=== PATIENT | male | born 1950 | race Caucasian/White ===

== ENCOUNTER → 2024-03-19 | Outpatient (REF) | payer MEDICARE ==
[~2024-03-19] MED LIST: DONEPEZIL HCL10 MG PO; DONEPEZIL PO; FLOMAX0.4 MG PO; GABAPENTIN300 MG PO; GEMFIBROZIL600 MG PO; KEPPRA500 MG PO; LEVOTHYROXINE50 MCG PO; LOSARTAN-HCTZ1 EAC1 PO; MEMANTINE PO
== END ==
LOC: US 12:17
PROVIDERS: ATTEND Internal Medicine Nephrology
DX: N18.4 Chronic kidney disease, stage 4 (severe) (principal)
CPT/HCPCS: 76770

== ENCOUNTER 2024-05-09 03:12 | Inpatient (IN) | payer MEDICARE ==
[2024-05-09] VITALS (57 sets, daily range): BP systolic 137–222; BP diastolic 61–207; PULSE 63–99; RESP 10–29; TEMP 97.4–98.6; O2SAT 88–100
[~2024-05-09] VITALS: Ht 175.3 cm; Wt 81.4 kg
[2024-05-09] MEDS: SODIUM CHLORIDE 0.9% 1000ML 1,000 ML IV STA (03:49)
[2024-05-09 03:52] LABS: BASOPHILS % 0.5 % (0.0-1.0); EOSINOPHILS # (AUTO) 0.2 (0.0-0.4); EOSINOPHILS % 2.2 % (0.0-6.0); HEMATOCRIT 39.2 % (38.2-49.6); HEMOGLOBIN 12.7 g/dL (14.0-18.0); LYMPHOCYTES # (AUTO) 1.8 (1.0-3.2); LYMPHOCYTES % 23.9 % (18.0-39.1); MEAN CORPUSCULAR HEMOGLOBIN 30.9 pg (28-32); MEAN CORPUSCULAR HGB CONC 32.4 g/dL (31-35); MEAN CORPUSCULAR VOLUME 95.4 fL (81-99); MONOCYTES # (AUTO) 0.6 (0.2-0.8); MONOCYTES % 7.5 % (4.4-11.3); NEUTROPHILS % 65.4 % (38.7-80.0); PLATELET COUNT 220 x10e3/uL (140-360); RED BLOOD COUNT 4.11 x10e6/uL (4.3-5.7); RED CELL DISTRIBUTION WIDTH 14.6 % (11.7-14.4); WHITE BLOOD COUNT 7.71 x10e3/uL (4.8-10.8)
[2024-05-09] MEDS: ACETAMINOPHEN 325 MG TAB PO STA (03:59)
[2024-05-09] MEDS ORDERED: Morphine 4mg INJECTION 4 MG/ML INJ IV PRN (04:00)
[2024-05-09] MEDS ORDERED: SODIUM CHLORIDE 0.9% 1000ML 1,000 ML IV SCH (04:00)
[2024-05-09] MEDS ORDERED: ONDANSETRON HCL INJ 2MG/ML 2ML 2 MG/ML VIAL IV PRN (04:00)
[2024-05-09 04:19] LABS: ALBUMIN 3.6 g/dL (3.5-5.0); ALBUMIN/GLOBULIN RATIO 0.9 (0.8-2.0); ANION GAP 21.1 mmol/L (8-16); BILIRUBIN,TOTAL 0.4 mg/dL (0.2-1.2); CALCIUM 10.3 mg/dL (8.4-10.2); CREATININE, SERUM 2.95 mg/dL (0.72-1.25); POTASSIUM 4.1 mmol/L (3.5-5.1); TOTAL PROTEIN 7.6 g/dL (6.5-8.1)
[2024-05-09 04:24] LABS: TROPONIN I 0.019 ng/mL (0-0.300)
[2024-05-09 04:30] LABS: B-TYPE NATRIURETIC PEPTIDE2 394.3 pg/mL (0-100)
[2024-05-09 04:44] LABS: ABG HCO3 19 mmol/L (22-26); ABG PCO2 44 mmHg (35-45); ABG PH 7.25 (7.35-7.45); ABG PO2 420 mmHg (80-105); ABG TCO2 20
[2024-05-09 04:51] LABS: INFLUENZAE A&B ANTIGEN (RAPID) NEGATIVE (NEGATIVE); RESPIRATORY SYNC. VIRUS NEGATIVE (NEGATIVE)
[2024-05-09] MEDS: MUPIROCIN 2% OINT 22 GM TUBE TOP SCH (08:04)
[2024-05-09] MEDS: LEVETIRACETAM 500 MG TAB PO SCH (08:04)
[2024-05-09] MEDS: METHYLPREDNISOLONE SOD SUCC 40 MG/ML VIAL 1ML IV ONE (08:04)
[2024-05-09] MEDS: LEVOTHYROXINE SODIUM 50 MCG TAB PO SCH (08:07)
[2024-05-09] MEDS: GEMFIBROZIL 600 MG TAB PO SCH (08:07)
[2024-05-09] MEDS: NIFEDIPINE CR 30 MG TAB PO SCH (08:53)
[2024-05-09] MEDS: ALBUTEROL/IPRATROPIUM 3 ML NEB NEB PRN (09:12)
[2024-05-09] MEDS: HYDRALAZINE HCL 20 MG/ML VIAL IV PRN (10:13)
[2024-05-09] MEDS ORDERED: FUROSEMIDE INJ 10 MG/ML 4 ML VIAL IV ONE (10:30)
[2024-05-09 11:00] LABS: ABG HCO3 17 mmol/L (22-26); ABG PCO2 38 mmHg (35-45); ABG PH 7.26 (7.35-7.45); ABG PO2 446 mmHg (80-105); ABG TCO2 18
[2024-05-09 12:52] LABS: ANION GAP 19.7 mmol/L (8-16); CALCIUM 8.9 mg/dL (8.4-10.2); CREATININE, SERUM 2.77 mg/dL (0.72-1.25); POTASSIUM 4.7 mmol/L (3.5-5.1)
[2024-05-09 12:56] LABS: BILIRUBIN,URINE NEGATIVE (NEGATIVE); CLARITY,URINE CLEAR (CLEAR); COLOR,URINE YELLOW (YELLOW); GLUCOSE, URINE NEGATIVE (NEGATIVE); KETONES,URINE NEGATIVE (NEGATIVE); LEUKOCYTE ESTERASE ,URINE NEGATIVE (NEGATIVE); NITRITE,URINE NEGATIVE (NEGATIVE); PH,URINE 5.5 (5 - 7); PROTEIN,URINE DIPSTICK >=300 (NEGATIVE); URINE UROBILINOGEN 0.2 mg/dL (0.2 - 1)
[2024-05-09] MEDS ORDERED: DIOVAN320 MG PO (13:05)
[2024-05-09] MEDS ORDERED: MEMANTINE HCL10 MG PO (13:10)
[2024-05-09] MEDS ORDERED: ALTOPREV40 MG PO (13:10)
[2024-05-09] MEDS ORDERED: AMLODIPINE BESYL5 MG PO (13:10)
[2024-05-09] MEDS ORDERED: METOPROLOL SUCC50 MG PO (13:10)
[2024-05-09] MEDS ORDERED: LAMOTRIGINE100 MG PO (13:10)
[2024-05-09 13:14] LABS: BACTERIA,URINE MODERATE /HPF; EPITHELIAL CELLS,URINE FEW /LPF; RBC,URINE 0-5 /HPF (0-5); RENAL EPITHELIAL CELLS,URINE FEW
[2024-05-09 13:18] LABS: TROPONIN I 0.01 ng/mL (0-0.300)
[2024-05-09] MEDS: ALBUTEROL/IPRATROPIUM 3 ML NEB NEB SCH (13:40)
[2024-05-09] MEDS: NIFEDIPINE CR 30 MG TAB PO ONE (14:14)
[2024-05-09] MEDS: METHYLPREDNISOLONE SOD SUCC 40 MG/ML VIAL 1ML IV SCH (14:14)
[2024-05-09 15:04] LABS: CREATININE,URINE RANDOM 120.77 mg/dL (63-166)
[2024-05-09] MEDS: BUMETANIDE INJ 0.25MG/ML 4ML VIAL IV ONE (15:05)
[2024-05-09] MEDS: DEXTROSE 5% 1,000 ML IV SCH (15:05)
[2024-05-09] MEDS: SODIUM BICARBONATE 650 MG TAB PO SCH (16:34)
[2024-05-09] MEDS: VALSARTAN 160 MG TAB PO ONE (18:25)
[2024-05-09] MEDS: BUDESONIDE 0.25 MG/2 ML NEB NEB SCH (19:43)
[2024-05-09] MEDS: TAMSULOSIN HCL 0.4 MG CAP PO SCH (20:44)
[2024-05-09] MEDS: NICARDIPINE 20MG/200ML PREMIX 200 ML IV SCH (20:45)
[2024-05-09] MEDS ORDERED: TAMSULOSIN HCL 0.4 MG CAP PO SCH (21:00)
[2024-05-09] MEDS: Morphine 4mg INJECTION 4 MG/ML INJ IV ONE (23:25)
[2024-05-10] VITALS (40 sets, daily range): BP systolic 115–188; BP diastolic 53–83; PULSE 52–98; RESP 10–26; TEMP 97.5–98.5; O2SAT 90–100
[2024-05-10 00:27] LABS: TROPONIN I < 0.05 ng/mL (0.0-0.40)
[2024-05-10 00:39] LABS: CREATINE KINASE 1560 IU/L (30-200)
[2024-05-10 06:14] LABS: HEMATOCRIT 34.6 % (38.2-49.6); HEMOGLOBIN 11.2 g/dL (14.0-18.0); LYMPHOCYTES # (AUTO) 0.3 (1.0-3.2); LYMPHOCYTES % 6.3 % (18.0-39.1); MEAN CORPUSCULAR HEMOGLOBIN 31.2 pg (28-32); MEAN CORPUSCULAR HGB CONC 32.4 g/dL (31-35); MEAN CORPUSCULAR VOLUME 96.4 fL (81-99); MONOCYTES # (AUTO) 0.2 (0.2-0.8); MONOCYTES % 4.4 % (4.4-11.3); NEUTROPHILS # (AUTO) 4.8 (2.1-6.9); NEUTROPHILS % 87.8 % (38.7-80.0); PLATELET COUNT 193 x10e3/uL (140-360); RED BLOOD COUNT 3.59 x10e6/uL (4.3-5.7); RED CELL DISTRIBUTION WIDTH 15.2 % (11.7-14.4); WHITE BLOOD COUNT 5.42 x10e3/uL (4.8-10.8)
[2024-05-10 06:46] LABS: ALBUMIN 2.9 g/dL (3.5-5.0); ANION GAP 15.2 mmol/L (8-16); BILIRUBIN,TOTAL 0.3 mg/dL (0.2-1.2); CALCIUM 8.6 mg/dL (8.4-10.2); CREATININE, SERUM 2.61 mg/dL (0.72-1.25); POTASSIUM 4.2 mmol/L (3.5-5.1); TOTAL PROTEIN 5.9 g/dL (6.5-8.1)
[2024-05-10 06:57] LABS: TROPONIN I < 0.05 ng/mL (0.0-0.40)
[2024-05-10 07:06] LABS: CREATINE KINASE 1051 IU/L (30-200)
[2024-05-10] MEDS: NIFEDIPINE CR 30 MG TAB PO SCH (08:40)
[2024-05-10] MEDS: VALSARTAN 160 MG TAB PO SCH (08:41)
[2024-05-10] MEDS: SODIUM BICARBONATE 650 MG TAB PO SCH (11:47)
[2024-05-10] MEDS: SODIUM BICARBONATE 8.4% VIAL 150 ML in DEXTROSE 5% 1,000 ML IV SCH (11:47)
[2024-05-10] MEDS: HYDRALAZINE HCL 25 MG TAB PO SCH (11:49)
[2024-05-11] VITALS (46 sets, daily range): BP systolic 153–191; BP diastolic 59–104; PULSE 66–118; RESP 7–20; TEMP 98.2–98.6; O2SAT 90–99
[2024-05-11 07:53] LABS: BASOPHILS % 0.1 % (0.0-1.0); HEMATOCRIT 39.4 % (38.2-49.6); HEMOGLOBIN 12.7 g/dL (14.0-18.0); LYMPHOCYTES # (AUTO) 0.3 (1.0-3.2); LYMPHOCYTES % 4.4 % (18.0-39.1); MEAN CORPUSCULAR HEMOGLOBIN 30.4 pg (28-32); MEAN CORPUSCULAR HGB CONC 32.2 g/dL (31-35); MEAN CORPUSCULAR VOLUME 94.3 fL (81-99); MONOCYTES # (AUTO) 0.2 (0.2-0.8); MONOCYTES % 3.3 % (4.4-11.3); NEUTROPHILS # (AUTO) 6.5 (2.1-6.9); NEUTROPHILS % 90.8 % (38.7-80.0); PLATELET COUNT 213 x10e3/uL (140-360); RED BLOOD COUNT 4.18 x10e6/uL (4.3-5.7); RED CELL DISTRIBUTION WIDTH 15.4 % (11.7-14.4)
[2024-05-11] MEDS: FUROSEMIDE INJ 10 MG/ML 2 ML VIAL IV ONE (08:13)
[2024-05-11 08:26] LABS: ALBUMIN 2.8 g/dL (3.5-5.0); ALBUMIN/GLOBULIN RATIO 0.8 (0.8-2.0); BILIRUBIN,TOTAL 0.4 mg/dL (0.2-1.2); CREATININE, SERUM 2.48 mg/dL (0.72-1.25); TOTAL PROTEIN 6.1 g/dL (6.5-8.1)
[2024-05-11] MEDS: HYDRALAZINE HCL 100 MG TABLET PO SCH (13:37)
[2024-05-11] MEDS: METHYLPREDNISOLONE SOD SUCC 40 MG/ML VIAL 1ML IV SCH (14:00)
[2024-05-11] MEDS: ENOXAPARIN 30 MG/0.3 ML SYR SC SCH (16:34)
[2024-05-12] VITALS (28 sets, daily range): BP systolic 101–184; BP diastolic 51–83; PULSE 68–114; RESP 8–20; TEMP 98–98.5; O2SAT 85–99
[2024-05-12 06:59] LABS: BASOPHILS % 0.1 % (0.0-1.0); EOSINOPHILS % 0.1 % (0.0-6.0); HEMATOCRIT 38.4 % (38.2-49.6); HEMOGLOBIN 12.4 g/dL (14.0-18.0); LYMPHOCYTES # (AUTO) 0.9 (1.0-3.2); MEAN CORPUSCULAR HEMOGLOBIN 30.7 pg (28-32); MEAN CORPUSCULAR HGB CONC 32.3 g/dL (31-35); MONOCYTES # (AUTO) 0.6 (0.2-0.8); NEUTROPHILS # (AUTO) 5.7 (2.1-6.9); NEUTROPHILS % 78.8 % (38.7-80.0); PLATELET COUNT 212 x10e3/uL (140-360); RED BLOOD COUNT 4.04 x10e6/uL (4.3-5.7); RED CELL DISTRIBUTION WIDTH 15.7 % (11.7-14.4); WHITE BLOOD COUNT 7.28 x10e3/uL (4.8-10.8)
[2024-05-12 07:26] LABS: ALBUMIN 2.7 g/dL (3.5-5.0); ALBUMIN/GLOBULIN RATIO 0.9 (0.8-2.0); ANION GAP 18.6 mmol/L (8-16); BILIRUBIN,TOTAL 0.4 mg/dL (0.2-1.2); CALCIUM 8.8 mg/dL (8.4-10.2); CREATININE, SERUM 2.55 mg/dL (0.72-1.25); POTASSIUM 3.6 mmol/L (3.5-5.1); TOTAL PROTEIN 5.6 g/dL (6.5-8.1)
[2024-05-12] MEDS: OXYMETAZOLINE HCL 0.05% NAS 1 SPRAY BTL SCH (14:51)
[2024-05-13] VITALS (31 sets, daily range): BP systolic 109–173; BP diastolic 55–74; PULSE 67–112; RESP 8–26; TEMP 97.9–98.7; O2SAT 85–99
[2024-05-14] VITALS (21 sets, daily range): BP systolic 146–196; BP diastolic 55–169; PULSE 63–96; RESP 7–21; TEMP 97.6–98.5; O2SAT 89–100
[2024-05-14 06:58] LABS: HEMATOCRIT 34.5 % (38.2-49.6); HEMOGLOBIN 11.1 g/dL (14.0-18.0); MEAN CORPUSCULAR HGB CONC 32.2 g/dL (31-35); MEAN CORPUSCULAR VOLUME 96.4 fL (81-99); PLATELET COUNT 162 x10e3/uL (140-360); RED BLOOD COUNT 3.58 x10e6/uL (4.3-5.7); RED CELL DISTRIBUTION WIDTH 14.9 % (11.7-14.4); WHITE BLOOD COUNT 4.26 x10e3/uL (4.8-10.8)
[2024-05-14 07:21] LABS: ALBUMIN 2.7 g/dL (3.5-5.0); ALBUMIN/GLOBULIN RATIO 0.9 (0.8-2.0); ANION GAP 15.4 mmol/L (8-16); BILIRUBIN,TOTAL 0.5 mg/dL (0.2-1.2); CALCIUM 8.5 mg/dL (8.4-10.2); CREATININE, SERUM 2.48 mg/dL (0.72-1.25); TOTAL PROTEIN 5.7 g/dL (6.5-8.1)
[2024-05-14 07:22] LABS: POTASSIUM 3.4 mmol/L (3.5-5.1)
[2024-05-14] MEDS: PREDNISONE 20 MG TAB PO SCH (10:21)
[2024-05-14] MEDS: POTASSIUM CHLORIDE 20 MEQ TAB CR PO ONE (10:38)
[2024-05-14] MEDS: SODIUM CHLORIDE 0.9% 250ML 250 ML ONE (23:09)
[2024-05-15] VITALS (13 sets, daily range): BP systolic 151–191; BP diastolic 61–68; PULSE 73–93; RESP 15–23; TEMP 97.6–98.7; O2SAT 95–98
[2024-05-15] MEDS ORDERED: ONDANSETRON HCL 4 MG ORAL DISINTEGRATING TAB PO PRN (08:30)
[2024-05-15] MEDS ORDERED: AZITHROMYCIN 250 MG TAB PO SCH (09:00)
[2024-05-15] MEDS: MEMANTINE 10 MG TAB PO SCH (09:31)
[2024-05-15] MEDS: AZITHROMYCIN 250 MG TAB PO SCH (09:31)
[2024-05-16] MEDS ORDERED: PREDNISONE 10 MG TAB PO SCH (09:00)
[2024-06-03 07:37] LABS: ABG HCO3 17 mmol/L (22-26); ABG PCO2 38 mmHg (35-45); ABG PH 7.26 (7.35-7.45); ABG PO2 446 mmHg (80-105); ABG TCO2 18
[2024-06-03 07:37] LABS: ABG HCO3 19 mmol/L (22-26); ABG PCO2 44 mmHg (35-45); ABG PH 7.25 (7.35-7.45); ABG PO2 420 mmHg (80-105); ABG TCO2 20
== END 2024-05-15 20:29 | disposition home health service (06) | DRG 189 ==
LOC: ER 03:17 → ERHOLD 03:53 → ICU 06:32 → MED/SURG 05-14 21:54
PROVIDERS: ADMIT Family Medicine; ATTEND Family Medicine
PROC: 4A033R1 Measurement of Arterial Saturation, Peripheral, Percutaneous Approach (ICD-10-PCS; principal; 2024-05-09)
PROC: 4A033R1 Measurement of Arterial Saturation, Peripheral, Percutaneous Approach (ICD-10-PCS; 2024-05-09)
PROC: 5A09357 Assistance with Respiratory Ventilation, Less than 24 Consecutive Hours, Continuous Positive Airway Pressure (ICD-10-PCS; 2024-05-09)
PROC: 5A0935A Assistance with Respiratory Ventilation, Less than 24 Consecutive Hours, High Flow/Velocity Cannula (ICD-10-PCS; 2024-05-13)
PROC: 5A0935A Assistance with Respiratory Ventilation, Less than 24 Consecutive Hours, High Flow/Velocity Cannula (ICD-10-PCS; 2024-05-13)
DX: J96.01 Acute respiratory failure with hypoxia (principal); I50.33 Acute on chronic diastolic (congestive) heart failure; J44.1 Chronic obstructive pulmonary disease with (acute) exacerbation; I13.0 Hypertensive heart and chronic kidney disease with heart failure and stage 1 through stage 4 chronic kidney disease, or unspecified chronic kidney disease; N17.9 Acute kidney failure, unspecified; E87.20 Acidosis, unspecified; E87.0 Hyperosmolality and hypernatremia; I16.9 Hypertensive crisis, unspecified; N39.0 Urinary tract infection, site not specified; N18.32 Chronic kidney disease, stage 3b; E87.8 Other disorders of electrolyte and fluid balance, not elsewhere classified; Z99.81 Dependence on supplemental oxygen; G40.909 Epilepsy, unspecified, not intractable, without status epilepticus; Z71.3 Dietary counseling and surveillance; Z68.27 Body mass index [BMI] 27.0-27.9, adult; N40.0 Benign prostatic hyperplasia without lower urinary tract symptoms; F03.90 Unspecified dementia, unspecified severity, without behavioral disturbance, psychotic disturbance, mood disturbance, and anxiety; F10.90 Alcohol use, unspecified, uncomplicated; Y90.0 Blood alcohol level of less than 20 mg/100 ml; Z11.52 Encounter for screening for COVID-19; Z87.891 Personal history of nicotine dependence; E78.5 Hyperlipidemia, unspecified
CPT/HCPCS: 0223U; 36415; 36600; 71045; 76604; 76770; 80048; 80053; 80320; 81001; 82550; 82570; 82805; 83605; 83690; 83880; 84156; 84484; 85007; 85025; 85027; 87040; 87086; 87400; 87420; 93005; 93306; 94660; 94799; 96365; 96366; 99252; 99284; J0360; J1650; J1940; J2270; J2543; J2919; J7030; J7050; J7070; J7512

== ENCOUNTER → 2024-06-04 | Outpatient (REF) | payer MEDICARE ==
[~2024-06-04] MED LIST changes: +ALTOPREV40 MG PO; +AMLODIPINE BESYL5 MG PO; +DIOVAN320 MG PO; +LAMOTRIGINE100 MG PO; +MEMANTINE HCL10 MG PO; +METOPROLOL SUCC50 MG PO
== END ==
LOC: RAD 12:30
PROVIDERS: ATTEND Internal Medicine Pulmonary Disease
DX: R06.02 Shortness of breath (principal)
CPT/HCPCS: 71046

== ENCOUNTER 2024-06-14 07:17 | Inpatient (IN) | payer MEDICARE ==
[~2024-06-14] VITALS: Ht 175.3 cm; Wt 81.2 kg
[2024-06-14] VITALS (10 sets, daily range): BP systolic 204–219; BP diastolic 80–92; PULSE 72–84; RESP 14–22; TEMP 96.6–98.2; O2SAT 94–99
[2024-06-14 07:45] LABS: BASOPHILS % 0.1 % (0.0-1.0); EOSINOPHILS % 0.1 % (0.0-6.0); HEMATOCRIT 35.8 % (38.2-49.6); HEMOGLOBIN 11.5 g/dL (14.0-18.0); LYMPHOCYTES # (AUTO) 0.5 (1.0-3.2); LYMPHOCYTES % 5.5 % (18.0-39.1); MEAN CORPUSCULAR HEMOGLOBIN 30.4 pg (28-32); MEAN CORPUSCULAR HGB CONC 32.1 g/dL (31-35); MEAN CORPUSCULAR VOLUME 94.7 fL (81-99); MONOCYTES # (AUTO) 0.7 (0.2-0.8); MONOCYTES % 7.8 % (4.4-11.3); NEUTROPHILS # (AUTO) 7.3 (2.1-6.9); NEUTROPHILS % 85.9 % (38.7-80.0); PLATELET COUNT 198 x10e3/uL (140-360); RED BLOOD COUNT 3.78 x10e6/uL (4.3-5.7); RED CELL DISTRIBUTION WIDTH 14.7 % (11.7-14.4)
[2024-06-14] MEDS: METOPROLOL TARTRATE 25 MG TAB PO ONE (07:46)
[2024-06-14] MEDS: ASPIRIN 81 MG CHEW TAB PO ONE (07:46)
[2024-06-14] MEDS: SODIUM CHLORIDE 0.9% 1000ML 1,000 ML IV STA (07:47)
[2024-06-14] MEDS: NITROGLYCERIN 2% OINT 1 GM PKT TOP ONE (07:47)
[2024-06-14 08:06] LABS: INR 1.07; PROTHROMBIN TIME 14.5 seconds (11.9-14.5)
[2024-06-14 08:07] LABS: PARTIAL THROMBOPLASTIN TIME 33.2 seconds (23.8-35.5)
[2024-06-14 08:12] LABS: ALBUMIN 3.2 g/dL (3.5-5.0); ALBUMIN/GLOBULIN RATIO 0.9 (0.8-2.0); ANION GAP 18.2 mmol/L (8-16); BILIRUBIN,TOTAL 0.5 mg/dL (0.2-1.2); CALCIUM 9.3 mg/dL (8.4-10.2); CREATININE, SERUM 2.59 mg/dL (0.72-1.25); MAGNESIUM 1.9 MG/DL (1.3-2.1); POTASSIUM 3.2 mmol/L (3.5-5.1); TOTAL PROTEIN 6.6 g/dL (6.5-8.1)
[2024-06-14 08:18] LABS: TROPONIN I 0.071 ng/mL (0-0.300)
[2024-06-14 08:23] LABS: B-TYPE NATRIURETIC PEPTIDE2 392.1 pg/mL (0-100)
[2024-06-14 08:31] LABS: INFLUENZA A AG NEGATIVE (NEGATIVE)
[2024-06-14 08:32] LABS: CORONAVIRUS COVID-19 AG NEGATIVE (NEGATIVE); INFLUENZA B AG NEGATIVE (NEGATIVE)
[2024-06-14] MEDS: HYDRALAZINE HCL 20 MG/ML VIAL IV STA (09:08)
[2024-06-14] MEDS: FUROSEMIDE INJ 10 MG/ML 4 ML VIAL IV ONE (09:08)
[2024-06-14] MEDS: ENALAPRILAT IV INJ 1.25 MG/ML VIAL IV STA (11:31)
[2024-06-14] MEDS: METHYLPREDNISOLONE SOD SUCC 125 MG/2ML VIAL IV SCH (11:31)
[2024-06-14] MEDS: ALBUTEROL/IPRATROPIUM 3 ML NEB NEB SCH (13:08)
[2024-06-14] MEDS: NITROGLYCERIN 2% OINT 1 GM PKT TOP SCH (13:46)
[2024-06-14] MEDS: HYDRALAZINE HCL 20 MG/ML VIAL IV PRN (13:47)
[2024-06-14 13:49] LABS: CLARITY,URINE CLEAR (CLEAR); COLOR,URINE YELLOW (YELLOW)
[2024-06-14 13:50] LABS: BILIRUBIN,URINE NEGATIVE (NEGATIVE); GLUCOSE, URINE NEGATIVE (NEGATIVE); KETONES,URINE NEGATIVE (NEGATIVE); LEUKOCYTE ESTERASE ,URINE NEGATIVE (NEGATIVE); NITRITE,URINE NEGATIVE (NEGATIVE); PH,URINE 5.5 (5 - 7); PROTEIN,URINE DIPSTICK >=300 (NEGATIVE); URINE UROBILINOGEN 0.2 mg/dL (0.2 - 1)
[2024-06-14 13:55] LABS: BACTERIA,URINE MANY /HPF; EPITHELIAL CELLS,URINE FEW /LPF; RBC,URINE 0-5 /HPF (0-5)
[2024-06-14 14:58] LABS: TROPONIN I 0.134 ng/mL (0-0.300)
[2024-06-14] MEDS ORDERED: ALBUTEROL 90 MCG/ACT INHALER INH PRN (16:30)
[2024-06-14] MEDS: METOPROLOL TARTRATE 25 MG TAB PO SCH (16:58)
[2024-06-14] MEDS: FUROSEMIDE INJ 10 MG/ML 4 ML VIAL IV SCH (16:58)
[2024-06-14] MEDS: BUDESONIDE 0.5MG/2 ML NEB INH SCH (19:59)
[2024-06-14] MEDS: TERAZOSIN HCL 5 MG CAP PO SCH (20:52)
[2024-06-15] VITALS (12 sets, daily range): BP systolic 146–175; BP diastolic 68–75; PULSE 70–86; RESP 18–22; TEMP 97.5–98.7; O2SAT 94–100
[2024-06-15 05:42] LABS: HEMATOCRIT 28.7 % (38.2-49.6); HEMOGLOBIN 9.6 g/dL (14.0-18.0); LYMPHOCYTES # (AUTO) 0.3 (1.0-3.2); LYMPHOCYTES % 5.1 % (18.0-39.1); MEAN CORPUSCULAR HEMOGLOBIN 30.8 pg (28-32); MEAN CORPUSCULAR HGB CONC 33.4 g/dL (31-35); MONOCYTES # (AUTO) 0.2 (0.2-0.8); MONOCYTES % 3.6 % (4.4-11.3); NEUTROPHILS # (AUTO) 4.8 (2.1-6.9); NEUTROPHILS % 90.5 % (38.7-80.0); PLATELET COUNT 181 x10e3/uL (140-360); RED BLOOD COUNT 3.12 x10e6/uL (4.3-5.7); RED CELL DISTRIBUTION WIDTH 15.2 % (11.7-14.4); WHITE BLOOD COUNT 5.31 x10e3/uL (4.8-10.8)
[2024-06-15] MEDS ORDERED: NIFEDIPINE ER30 MG PO (06:11)
[2024-06-15] MEDS ORDERED: HYDRALAZINE HC100 MG PO (06:11)
[2024-06-15] MEDS ORDERED: BREYNA 160-4.10.3 GM IH (06:11)
[2024-06-15 06:12] LABS: ALBUMIN 2.8 g/dL (3.5-5.0); ANION GAP 15.1 mmol/L (8-16); BILIRUBIN,TOTAL 0.3 mg/dL (0.2-1.2); CALCIUM 8.7 mg/dL (8.4-10.2); CREATININE, SERUM 2.6 mg/dL (0.72-1.25); TOTAL PROTEIN 5.7 g/dL (6.5-8.1)
[2024-06-15 06:19] LABS: POTASSIUM 3.1 mmol/L (3.5-5.1); TROPONIN I 0.097 ng/mL (0-0.300)
[2024-06-15] MEDS: LEVOTHYROXINE SODIUM 50 MCG TAB PO SCH (09:04)
[2024-06-15] MEDS: LAMOTRIGINE 100 MG TAB PO SCH (09:05)
[2024-06-15] MEDS: LEVETIRACETAM 500 MG TAB PO SCH (09:05)
[2024-06-15] MEDS: MEMANTINE 10 MG TAB PO SCH (09:05)
[2024-06-15] MEDS: ASPIRIN 81 MG ENTERIC COATED PO SCH (09:06)
[2024-06-15] MEDS: GEMFIBROZIL 600 MG TAB PO SCH (10:49)
[2024-06-15] MEDS: POTASSIUM CHLORIDE 20 MEQ TAB CR PO ONE (10:52)
[2024-06-15] MEDS: TAMSULOSIN HCL 0.4 MG CAP PO SCH (20:23)
[2024-06-16] VITALS (12 sets, daily range): BP systolic 148–196; BP diastolic 64–82; PULSE 71–82; RESP 18–23; TEMP 97.5–98.3; O2SAT 94–99
[2024-06-16] MEDS: MAGNESIUM SULFATE 2GM/50ML 50 ML IV ONE (05:05)
[2024-06-16 09:16] LABS: CREATININE,URINE RANDOM 51.5 mg/dL (63-166); TOTAL PROTEIN, URINE 96.4 mg/dL (1-14)
[2024-06-16 09:27] LABS: BASOPHILS % 0.2 % (0.0-1.0); EOSINOPHILS % 0.9 % (0.0-6.0); HEMATOCRIT 29.4 % (38.2-49.6); HEMOGLOBIN 9.7 g/dL (14.0-18.0); LYMPHOCYTES # (AUTO) 0.8 (1.0-3.2); LYMPHOCYTES % 16.6 % (18.0-39.1); MEAN CORPUSCULAR HEMOGLOBIN 30.8 pg (28-32); MEAN CORPUSCULAR VOLUME 93.3 fL (81-99); MONOCYTES # (AUTO) 0.4 (0.2-0.8); MONOCYTES % 7.8 % (4.4-11.3); NEUTROPHILS # (AUTO) 3.3 (2.1-6.9); NEUTROPHILS % 73.6 % (38.7-80.0); PLATELET COUNT 202 x10e3/uL (140-360); RED BLOOD COUNT 3.15 x10e6/uL (4.3-5.7); WHITE BLOOD COUNT 4.51 x10e3/uL (4.8-10.8)
[2024-06-16 09:57] LABS: ANION GAP 16.1 mmol/L (8-16); CALCIUM 8.3 mg/dL (8.4-10.2); CREATININE, SERUM 2.61 mg/dL (0.72-1.25); PHOSPHORUS 3.4 MG/DL (2.3-4.7)
[2024-06-16 10:00] LABS: POTASSIUM 3.1 mmol/L (3.5-5.1)
[2024-06-17 18:09] LABS: MYELOPEROXIDASE AB (MPO) 0.7 units (0.0-0.9)
[2024-06-17 18:42] LABS: PROTEINASE-3 ANTIBODY <0.2 units (0.0-0.9)
== END 2024-06-16 18:06 | disposition home or self-care (01) | DRG 193 ==
LOC: ER 07:30 → ERHOLD 09:17 → MED/SURG2 12:42
PROVIDERS: ADMIT Internal Medicine; ATTEND Internal Medicine
DX: J18.9 Pneumonia, unspecified organism (principal); J96.21 Acute and chronic respiratory failure with hypoxia; J44.0 Chronic obstructive pulmonary disease with (acute) lower respiratory infection; J44.1 Chronic obstructive pulmonary disease with (acute) exacerbation; N18.4 Chronic kidney disease, stage 4 (severe); I12.9 Hypertensive chronic kidney disease with stage 1 through stage 4 chronic kidney disease, or unspecified chronic kidney disease; I16.0 Hypertensive urgency; Z99.81 Dependence on supplemental oxygen; E78.00 Pure hypercholesterolemia, unspecified; G40.909 Epilepsy, unspecified, not intractable, without status epilepticus; N40.0 Benign prostatic hyperplasia without lower urinary tract symptoms; F03.90 Unspecified dementia, unspecified severity, without behavioral disturbance, psychotic disturbance, mood disturbance, and anxiety; Z11.52 Encounter for screening for COVID-19; Z79.890 Hormone replacement therapy; Z87.891 Personal history of nicotine dependence; Z82.49 Family history of ischemic heart disease and other diseases of the circulatory system
CPT/HCPCS: 36415; 71045; 76770; 80048; 80053; 81001; 82550; 82570; 83605; 83735; 83880; 84100; 84156; 84484; 85025; 85610; 85730; 86021; 87040; 87086; 93005; 93306; 94640; 94760; 94799; 99285; J0360; J0696; J1940; J2919; J3475; J7030; J7050

== ENCOUNTER 2024-06-19 14:07 | Inpatient (IN) | payer MEDICARE ==
[~2024-06-19] VITALS: Ht 170.2 cm; Wt 77.1 kg
[2024-06-19] VITALS (11 sets, daily range): BP systolic 165–177; BP diastolic 66–73; PULSE 80–100; RESP 11–22; TEMP 97.7–98.1; O2SAT 93–97
[~2024-06-19 14:07] MED LIST changes: +BREYNA 160-4.10.3 GM IH; +HYDRALAZINE HC100 MG PO; +NIFEDIPINE ER30 MG PO
[2024-06-19 14:36] LABS: BASOPHILS % 0.3 % (0.0-1.0); EOSINOPHILS # (AUTO) 0.2 (0.0-0.4); EOSINOPHILS % 2.7 % (0.0-6.0); HEMATOCRIT 32.1 % (38.2-49.6); HEMOGLOBIN 10.9 g/dL (14.0-18.0); LYMPHOCYTES # (AUTO) 0.8 (1.0-3.2); LYMPHOCYTES % 10.5 % (18.0-39.1); MEAN CORPUSCULAR HEMOGLOBIN 30.9 pg (28-32); MEAN CORPUSCULAR VOLUME 90.9 fL (81-99); MONOCYTES # (AUTO) 0.7 (0.2-0.8); MONOCYTES % 9.3 % (4.4-11.3); NEUTROPHILS # (AUTO) 5.6 (2.1-6.9); NEUTROPHILS % 76.4 % (38.7-80.0); PLATELET COUNT 247 x10e3/uL (140-360); RED BLOOD COUNT 3.53 x10e6/uL (4.3-5.7); RED CELL DISTRIBUTION WIDTH 15.1 % (11.7-14.4)
[2024-06-19] MEDS: ALBUTEROL SULF 0.083% NEB SOLN 3 ML NEB NEB STA (14:54)
[2024-06-19 14:55] LABS: ALBUMIN 3.4 g/dL (3.5-5.0); ALBUMIN/GLOBULIN RATIO 0.9 (0.8-2.0); ANION GAP 20.2 mmol/L (8-16); BILIRUBIN,TOTAL 0.7 mg/dL (0.2-1.2); CALCIUM 9.3 mg/dL (8.4-10.2); CREATININE, SERUM 2.44 mg/dL (0.72-1.25); POTASSIUM 4.2 mmol/L (3.5-5.1)
[2024-06-19] MEDS ORDERED: SODIUM CHLORIDE FLUSH 10 ML SYR INJ PRN (17:00)
[2024-06-19] MEDS ORDERED: ONDANSETRON HCL INJ 2MG/ML 2ML 2 MG/ML VIAL IV PRN (17:00)
[2024-06-19] MEDS: FUROSEMIDE INJ 10 MG/ML 4 ML VIAL IV ONE ×2 (17:30→23:22)
[2024-06-19] MEDS: LABETALOL HCL 5 MG/ML 20ML VIAL IV STA (17:31)
[2024-06-19] MEDS: NIFEDIPINE CR 30 MG TAB PO SCH (21:38)
[2024-06-19] MEDS: HYDRALAZINE HCL 100 MG TABLET PO SCH (21:38)
[2024-06-19] MEDS: METHYLPREDNISOLONE SOD SUCC 40 MG/ML VIAL 1ML IV SCH (23:21)
[2024-06-19] MEDS: ALBUTEROL/IPRATROPIUM 3 ML NEB NEB SCH (23:32)
[2024-06-20] VITALS (27 sets, daily range): BP systolic 109–195; BP diastolic 49–92; PULSE 70–94; RESP 10–27; TEMP 97.8–98.7; O2SAT 91–99
[2024-06-20] MEDS: HYDRALAZINE HCL 20 MG/ML VIAL IV PRN (03:16)
[2024-06-20 06:42] LABS: ABG HCO3 24 mmol/L (22-26); ABG PCO2 25 mmHg (35-45); ABG PO2 65 mmHg (80-105); ABG TCO2 25
[2024-06-20 06:42] LABS: HEMATOCRIT 33.1 % (38.2-49.6); HEMOGLOBIN 10.6 g/dL (14.0-18.0); LYMPHOCYTES # (AUTO) 0.3 (1.0-3.2); LYMPHOCYTES % 4.5 % (18.0-39.1); MEAN CORPUSCULAR HEMOGLOBIN 30.6 pg (28-32); MEAN CORPUSCULAR VOLUME 95.7 fL (81-99); MONOCYTES # (AUTO) 0.1 (0.2-0.8); MONOCYTES % 2.3 % (4.4-11.3); NEUTROPHILS # (AUTO) 5.5 (2.1-6.9); NEUTROPHILS % 92.2 % (38.7-80.0); PLATELET COUNT 191 x10e3/uL (140-360); RED BLOOD COUNT 3.46 x10e6/uL (4.3-5.7); RED CELL DISTRIBUTION WIDTH 15.3 % (11.7-14.4); WHITE BLOOD COUNT 6.01 x10e3/uL (4.8-10.8)
[2024-06-20 07:16] LABS: ALBUMIN 3.3 g/dL (3.5-5.0); ALBUMIN/GLOBULIN RATIO 1.1 (0.8-2.0); ANION GAP 17.7 mmol/L (8-16); BILIRUBIN,TOTAL 0.5 mg/dL (0.2-1.2); CALCIUM 9.2 mg/dL (8.4-10.2); CREATININE, SERUM 2.55 mg/dL (0.72-1.25); POTASSIUM 3.7 mmol/L (3.5-5.1); TOTAL PROTEIN 6.2 g/dL (6.5-8.1)
[2024-06-20] MEDS: MUPIROCIN 2% OINT 22 GM TUBE TOP SCH (08:24)
[2024-06-20] MEDS: MEMANTINE 10 MG TAB PO SCH (09:43)
[2024-06-20] MEDS: LAMOTRIGINE 100 MG TAB PO SCH (09:43)
[2024-06-20] MEDS: LEVOTHYROXINE SODIUM 50 MCG TAB PO SCH (09:43)
[2024-06-20] MEDS: GEMFIBROZIL 600 MG TAB PO SCH (09:44)
[2024-06-20] MEDS: NIFEDIPINE CR 30 MG TAB PO ONE (09:44)
[2024-06-20] MEDS: METOPROLOL TARTRATE 25 MG TAB PO SCH (09:44)
[2024-06-20] MEDS: LEVETIRACETAM 500 MG TAB PO SCH (09:44)
[2024-06-20] MEDS: HEPARIN SOD (PORCINE) 5,000 UNIT/ML VIAL SC SCH (09:45)
[2024-06-20 14:04] LABS: INR 1.05; PROTHROMBIN TIME 14.3 seconds (11.9-14.5)
[2024-06-20 14:40] LABS: BODY FLUID APPEARANCE SL.CLOUDY; BODY FLUID COLOR YELLOW; BODY FLUID TYPE PLEURAL
[2024-06-20 15:45] LABS: WBC,BODY FLUID 322 cells/uL
[2024-06-20 15:46] LABS: RBC,BODY FLUID 1000 cells/uL
[2024-06-20] MEDS: NIFEDIPINE CR 30 MG TAB PO SCH (16:49)
[2024-06-20 17:09] LABS: LYMPHOCYTES,BODY FLUID 20 %; MONO/MACROPHG,BODY FLUID 45 %; NEUTROPHILS,BODY FLUID 2 %; TOTAL CELLS COUNTED (DIFF) 100
[2024-06-20 17:10] LABS: OTHER CELLS,BODY FLUID 33 %
[2024-06-20] MEDS: TAMSULOSIN HCL 0.4 MG CAP PO SCH (21:11)
[2024-06-21] VITALS (21 sets, daily range): BP systolic 142–170; BP diastolic 59–112; PULSE 74–101; RESP 15–26; TEMP 97.5–98.6; O2SAT 81–98
[2024-06-21 06:41] LABS: BASOPHILS % 0.1 % (0.0-1.0); HEMATOCRIT 32.9 % (38.2-49.6); HEMOGLOBIN 10.8 g/dL (14.0-18.0); LYMPHOCYTES # (AUTO) 0.2 (1.0-3.2); LYMPHOCYTES % 1.9 % (18.0-39.1); MEAN CORPUSCULAR HEMOGLOBIN 30.7 pg (28-32); MEAN CORPUSCULAR HGB CONC 32.8 g/dL (31-35); MEAN CORPUSCULAR VOLUME 93.5 fL (81-99); MONOCYTES # (AUTO) 0.3 (0.2-0.8); MONOCYTES % 2.6 % (4.4-11.3); NEUTROPHILS % 94.4 % (38.7-80.0); PLATELET COUNT 210 x10e3/uL (140-360); RED BLOOD COUNT 3.52 x10e6/uL (4.3-5.7); RED CELL DISTRIBUTION WIDTH 15.4 % (11.7-14.4); WHITE BLOOD COUNT 10.63 x10e3/uL (4.8-10.8)
[2024-06-21 07:23] LABS: CALCIUM 9.1 mg/dL (8.4-10.2); CREATININE, SERUM 2.97 mg/dL (0.72-1.25)
[2024-06-21] MEDS: BUDESONIDE 0.5MG/2 ML NEB INH SCH (13:25)
[2024-06-22] VITALS (46 sets, daily range): BP systolic 142–191; BP diastolic 60–98; PULSE 35–95; RESP 13–24; TEMP 97.7–98.6; O2SAT 89–100
[2024-06-22] MEDS: FUROSEMIDE INJ 10 MG/ML 4 ML VIAL IV ONE (12:36)
[2024-06-22] MEDS: MUPIROCIN 2% OINT 22 GM TUBE TOP SCH (17:04)
[2024-06-22] MEDS: FUROSEMIDE INJ 10 MG/ML 4 ML VIAL IV SCH (22:08)
[2024-06-23] VITALS (33 sets, daily range): BP systolic 137–193; BP diastolic 54–92; PULSE 63–91; RESP 11–26; TEMP 98.2–98.8; O2SAT 90–100
[2024-06-23 06:48] LABS: BASOPHILS % 0.2 % (0.0-1.0); EOSINOPHILS % 0.2 % (0.0-6.0); HEMATOCRIT 30.9 % (38.2-49.6); HEMOGLOBIN 9.8 g/dL (14.0-18.0); LYMPHOCYTES # (AUTO) 0.6 (1.0-3.2); LYMPHOCYTES % 13.3 % (18.0-39.1); MEAN CORPUSCULAR HEMOGLOBIN 30.5 pg (28-32); MEAN CORPUSCULAR HGB CONC 31.7 g/dL (31-35); MEAN CORPUSCULAR VOLUME 96.3 fL (81-99); MONOCYTES # (AUTO) 0.4 (0.2-0.8); MONOCYTES % 9.9 % (4.4-11.3); NEUTROPHILS # (AUTO) 3.3 (2.1-6.9); NEUTROPHILS % 74.8 % (38.7-80.0); PLATELET COUNT 168 x10e3/uL (140-360); RED BLOOD COUNT 3.21 x10e6/uL (4.3-5.7); RED CELL DISTRIBUTION WIDTH 15.1 % (11.7-14.4); WHITE BLOOD COUNT 4.44 x10e3/uL (4.8-10.8)
[2024-06-23 07:03] LABS: ANION GAP 17.5 mmol/L (8-16); CALCIUM 8.5 mg/dL (8.4-10.2); CREATININE, SERUM 2.93 mg/dL (0.72-1.25); POTASSIUM 3.5 mmol/L (3.5-5.1)
[2024-06-23] MEDS: HYDRALAZINE HCL 20 MG/ML VIAL IV PRN (12:02)
[2024-06-24] VITALS (34 sets, daily range): BP systolic 143–197; BP diastolic 63–87; PULSE 66–82; RESP 12–20; TEMP 97.7–98.6; O2SAT 86–99
[2024-06-24 06:06] LABS: EOSINOPHILS % 0.6 % (0.0-6.0); HEMATOCRIT 32.6 % (38.2-49.6); HEMOGLOBIN 10.9 g/dL (14.0-18.0); LYMPHOCYTES # (AUTO) 0.7 (1.0-3.2); LYMPHOCYTES % 13.3 % (18.0-39.1); MEAN CORPUSCULAR HEMOGLOBIN 30.4 pg (28-32); MEAN CORPUSCULAR HGB CONC 33.4 g/dL (31-35); MEAN CORPUSCULAR VOLUME 91.1 fL (81-99); MONOCYTES # (AUTO) 0.5 (0.2-0.8); MONOCYTES % 9.1 % (4.4-11.3); NEUTROPHILS # (AUTO) 3.8 (2.1-6.9); PLATELET COUNT 195 x10e3/uL (140-360); RED BLOOD COUNT 3.58 x10e6/uL (4.3-5.7); RED CELL DISTRIBUTION WIDTH 14.8 % (11.7-14.4); WHITE BLOOD COUNT 4.95 x10e3/uL (4.8-10.8)
[2024-06-24] MEDS: METHYLPREDNISOLONE SOD SUCC 40 MG/ML VIAL 1ML IV SCH (08:30)
[2024-06-24 10:04] LABS: TOTAL PROTEIN,BODY FLUID 1.7 g/dL
[2024-06-24] MEDS ORDERED: FUROSEMIDE INJ 10 MG/ML 4 ML VIAL IV SCH (10:15)
[2024-06-24 10:27] LABS: ALBUMIN 3.1 g/dL (3.5-5.0); ANION GAP 19.3 mmol/L (8-16); BILIRUBIN,TOTAL 0.4 mg/dL (0.2-1.2); CALCIUM 8.8 mg/dL (8.4-10.2); CREATININE, SERUM 3.16 mg/dL (0.72-1.25); TOTAL PROTEIN 6.3 g/dL (6.5-8.1)
[2024-06-24 10:32] LABS: POTASSIUM 3.3 mmol/L (3.5-5.1)
[2024-06-24] MEDS: POTASSIUM CHLORIDE 20MEQ/100ML 200 ML IV ONE (10:34)
[2024-06-24] MEDS: FUROSEMIDE INJ 10 MG/ML 4 ML VIAL IV SCH (15:10)
[2024-06-24 19:23] LABS: CREATININE,URINE RANDOM 46.34 mg/dL (63-166); TOTAL PROTEIN, URINE 63.4 mg/dL (1-14)
[2024-06-25] VITALS (26 sets, daily range): BP systolic 137–165; BP diastolic 59–79; PULSE 63–88; RESP 7–22; TEMP 97.6–98.7; O2SAT 91–99
[2024-06-25 09:00] LABS: BASOPHILS % 0.2 % (0.0-1.0); EOSINOPHILS # (AUTO) 0.1 (0.0-0.4); EOSINOPHILS % 0.8 % (0.0-6.0); HEMATOCRIT 35.1 % (38.2-49.6); HEMOGLOBIN 11.2 g/dL (14.0-18.0); LYMPHOCYTES # (AUTO) 0.8 (1.0-3.2); LYMPHOCYTES % 12.9 % (18.0-39.1); MEAN CORPUSCULAR HEMOGLOBIN 30.8 pg (28-32); MEAN CORPUSCULAR HGB CONC 31.9 g/dL (31-35); MEAN CORPUSCULAR VOLUME 96.4 fL (81-99); MONOCYTES # (AUTO) 0.5 (0.2-0.8); MONOCYTES % 7.8 % (4.4-11.3); NEUTROPHILS # (AUTO) 4.7 (2.1-6.9); NEUTROPHILS % 77.3 % (38.7-80.0); PLATELET COUNT 211 x10e3/uL (140-360); RED BLOOD COUNT 3.64 x10e6/uL (4.3-5.7); RED CELL DISTRIBUTION WIDTH 14.6 % (11.7-14.4); WHITE BLOOD COUNT 6.12 x10e3/uL (4.8-10.8)
[2024-06-25 09:23] LABS: ALBUMIN 3.1 g/dL (3.5-5.0); ALBUMIN/GLOBULIN RATIO 0.9 (0.8-2.0); ANION GAP 20.8 mmol/L (8-16); BILIRUBIN,TOTAL 0.3 mg/dL (0.2-1.2); CALCIUM 9.1 mg/dL (8.4-10.2); CREATININE, SERUM 3.18 mg/dL (0.72-1.25); POTASSIUM 3.8 mmol/L (3.5-5.1); TOTAL PROTEIN 6.7 g/dL (6.5-8.1)
[2024-06-26] VITALS (25 sets, daily range): BP systolic 120–168; BP diastolic 55–84; PULSE 64–81; RESP 7–34; TEMP 97.4–98.3; O2SAT 90–100
[2024-06-26] MEDS: PREDNISONE 20 MG TAB PO SCH (08:10)
[2024-06-26] MEDS: BUMETANIDE 1 MG TAB PO SCH (17:57)
[2024-06-27] VITALS (8 sets, daily range): BP systolic 155–180; BP diastolic 55–66; PULSE 69–76; RESP 18–19; TEMP 97.7–97.9; O2SAT 97–100
== END 2024-06-27 13:38 | disposition home health service (06) | DRG 291 ==
LOC: ER 14:13 → ERHOLD 16:55 → OBSVTOIN 17:14 → ICU 19:46 → MED/SURG2 06-22 08:17 → ICU 06-22 12:19 → MED/SURG3 06-26 16:38
PROVIDERS: ADMIT Internal Medicine; ATTEND Internal Medicine
PROC: 4A133R1 Monitoring of Arterial Saturation, Peripheral, Percutaneous Approach (ICD-10-PCS; 2024-06-19)
PROC: 5A09357 Assistance with Respiratory Ventilation, Less than 24 Consecutive Hours, Continuous Positive Airway Pressure (ICD-10-PCS; 2024-06-19)
PROC: 0W993ZZ Drainage of Right Pleural Cavity, Percutaneous Approach (ICD-10-PCS; principal; 2024-06-20)
DX: I13.0 Hypertensive heart and chronic kidney disease with heart failure and stage 1 through stage 4 chronic kidney disease, or unspecified chronic kidney disease (principal); I50.33 Acute on chronic diastolic (congestive) heart failure; J96.21 Acute and chronic respiratory failure with hypoxia; J44.1 Chronic obstructive pulmonary disease with (acute) exacerbation; J91.8 Pleural effusion in other conditions classified elsewhere; J98.11 Atelectasis; N17.9 Acute kidney failure, unspecified; N18.4 Chronic kidney disease, stage 4 (severe); E87.20 Acidosis, unspecified; K74.60 Unspecified cirrhosis of liver; Z99.81 Dependence on supplemental oxygen; K76.0 Fatty (change of) liver, not elsewhere classified; F03.90 Unspecified dementia, unspecified severity, without behavioral disturbance, psychotic disturbance, mood disturbance, and anxiety; J43.9 Emphysema, unspecified; G40.909 Epilepsy, unspecified, not intractable, without status epilepticus; N27.0 Small kidney, unilateral; E78.5 Hyperlipidemia, unspecified; N40.0 Benign prostatic hyperplasia without lower urinary tract symptoms; R53.81 Other malaise; Z79.51 Long term (current) use of inhaled steroids; Z79.890 Hormone replacement therapy; Z85.828 Personal history of other malignant neoplasm of skin; Z87.891 Personal history of nicotine dependence
CPT/HCPCS: 32555; 36415; 71045; 71046; 71250; 74470; 76604; 76700; 80048; 80053; 82040; 82570; 82805; 82945; 82948; 83615; 83735; 83880; 84156; 84157; 84484; 85025; 85610; 87070; 87205; 88112; 88305; 89051; 93005; 94640; 94644; 94660; 94799; 99252; 99285; C1729; J0360; J1644; J1940; J2543; J2919; J3480; J7512

== ENCOUNTER → 2024-07-03 | Outpatient (REF) | payer MEDICARE | LOC: US 14:11 | PROVIDERS: ATTEND Internal Medicine Pulmonary Disease | DX: J90 Pleural effusion, not elsewhere classified (principal) | CPT/HCPCS: 71046; 76604 ==

== ENCOUNTER → 2024-07-12 | Outpatient (REF) | payer MEDICARE | LOC: CT 14:44 | PROVIDERS: ATTEND Internal Medicine Pulmonary Disease | DX: R93.89 Abnormal findings on diagnostic imaging of other specified body structures (principal) | CPT/HCPCS: 71250 ==

== ENCOUNTER → 2024-08-08 | Outpatient (REF) | payer MEDICARE ==
[~2024-08-08] MED LIST changes: +ALBUTEROL2.5 MG/3 M INH; +BREYNA 160-4.10.3 GM INH; +BUMETANIDE1 MG PO; +BUSPIRONE HCL5 MG PO; +LOKELMA10 GM PO; +METOPROLOL TART25 MG PO; +STIOLTO RESPIMAT4 G2 INH
== END ==
LOC: RAD 13:41
PROVIDERS: ATTEND Internal Medicine Pulmonary Disease
DX: R06.02 Shortness of breath (principal); J90 Pleural effusion, not elsewhere classified
CPT/HCPCS: 71046

== ENCOUNTER 2024-08-09 06:43 | Inpatient (IN) | payer MEDICARE ==
[~2024-08-09] VITALS: Ht 172.7 cm; Wt 77.1 kg
[2024-08-09] VITALS (13 sets, daily range): BP systolic 170–200; BP diastolic 70–86; PULSE 71–100; RESP 17–21; TEMP 97–98.8; O2SAT 94–100
[~2024-08-09 06:43] MED LIST changes: -ALBUTEROL2.5 MG/3 M INH; -BREYNA 160-4.10.3 GM INH; -BUMETANIDE1 MG PO; -BUSPIRONE HCL5 MG PO; -LOKELMA10 GM PO; -METOPROLOL TART25 MG PO; -STIOLTO RESPIMAT4 G2 INH
[2024-08-09 07:27] LABS: BASOPHILS % 0.3 % (0.0-1.0); EOSINOPHILS % 0.2 % (0.0-6.0); HEMATOCRIT 39.7 % (38.2-49.6); HEMOGLOBIN 12.3 g/dL (14.0-18.0); LYMPHOCYTES # (AUTO) 0.7 (1.0-3.2); LYMPHOCYTES % 7.8 % (18.0-39.1); MEAN CORPUSCULAR HEMOGLOBIN 29.9 pg (28-32); MEAN CORPUSCULAR VOLUME 96.4 fL (81-99); MONOCYTES # (AUTO) 0.7 (0.2-0.8); MONOCYTES % 8.2 % (4.4-11.3); NEUTROPHILS # (AUTO) 7.5 (2.1-6.9); NEUTROPHILS % 82.9 % (38.7-80.0); PLATELET COUNT 216 x10e3/uL (140-360); RED BLOOD COUNT 4.12 x10e6/uL (4.3-5.7); RED CELL DISTRIBUTION WIDTH 14.6 % (11.7-14.4); WHITE BLOOD COUNT 8.99 x10e3/uL (4.8-10.8)
[2024-08-09] MEDS: HYDRALAZINE HCL 20 MG/ML VIAL IV STA (07:35)
[2024-08-09] MEDS: FUROSEMIDE INJ 10 MG/ML 4 ML VIAL IV ONE (07:36)
[2024-08-09 07:59] LABS: ANION GAP 20.9 mmol/L (8-16); BILIRUBIN,TOTAL 0.8 mg/dL (0.2-1.2); CALCIUM 10.1 mg/dL (8.4-10.2); CREATININE, SERUM 2.85 mg/dL (0.72-1.25); TOTAL PROTEIN 7.9 g/dL (6.5-8.1)
[2024-08-09 08:01] LABS: POTASSIUM 2.9 mmol/L (3.5-5.1)
[2024-08-09 08:07] LABS: TROPONIN I 0.081 ng/mL (0-0.300)
[2024-08-09] MEDS ORDERED: POTASSIUM CHLORIDE 20 MEQ TAB CR PO ONE (08:36)
[2024-08-09] MEDS: POTASSIUM CHLORIDE 20 MEQ TAB CR PO STA (08:43)
[2024-08-09] MEDS ORDERED: NIFEDIPINE 10 MG CAP PO PRN (09:30)
[2024-08-09] MEDS ORDERED: STIOLTO RESPIMAT4 G2 INH (10:56)
[2024-08-09] MEDS ORDERED: ALBUTEROL2.5 MG/3 M INH (10:56)
[2024-08-09] MEDS ORDERED: BUMETANIDE1 MG PO (10:56)
[2024-08-09] MEDS ORDERED: BUSPIRONE HCL5 MG PO (10:56)
[2024-08-09] MEDS ORDERED: AMLODIPINE BESYL5 MG PO (10:56)
[2024-08-09] MEDS ORDERED: LOKELMA10 GM PO (10:56)
[2024-08-09] MEDS ORDERED: BREYNA 160-4.10.3 GM INH (10:56)
[2024-08-09] MEDS ORDERED: METOPROLOL TART25 MG PO (10:56)
[2024-08-09] MEDS: HYDRALAZINE HCL 100 MG TABLET PO SCH (12:19)
[2024-08-09] MEDS: ALBUTEROL/IPRATROPIUM 3 ML NEB NEB SCH (13:00)
[2024-08-09] MEDS ORDERED: SIMETHICONE 80 MG CHEW PO PRN (14:15)
[2024-08-09] MEDS ORDERED: ONDANSETRON HCL INJ 2MG/ML 2ML 2 MG/ML VIAL IV PRN (14:15)
[2024-08-09] MEDS ORDERED: ACETAMINOPHEN 325 MG TAB PO PRN (14:15)
[2024-08-09] MEDS ORDERED: ALBUTEROL/IPRATROPIUM 3 ML NEB NEB PRN (14:15)
[2024-08-09] MEDS ORDERED: MELATONIN 3 MG TAB PO PRN (14:15)
[2024-08-09] MEDS ORDERED: DOCUSATE SODIUM 100 MG CAP PO PRN (14:15)
[2024-08-09] MEDS: FUROSEMIDE INJ 10 MG/ML 2 ML VIAL IV ONE (15:10)
[2024-08-09] MEDS: BUSPIRONE HCL 5 MG TAB PO SCH (15:10)
[2024-08-09] MEDS: NIFEDIPINE CR 30 MG TAB PO SCH (15:13)
[2024-08-09] MEDS: METOPROLOL TARTRATE 25 MG TAB PO SCH (15:14)
[2024-08-09] MEDS: METOPROLOL TARTRATE INJ 1 MG/ML VIAL IV PRN (16:01)
[2024-08-09] MEDS: MEMANTINE 10 MG TAB PO SCH (16:35)
[2024-08-09] MEDS: LEVETIRACETAM 500 MG TAB PO SCH (16:35)
[2024-08-09] MEDS: GEMFIBROZIL 600 MG TAB PO SCH (16:35)
[2024-08-09] MEDS: LAMOTRIGINE 100 MG TAB PO SCH (16:36)
[2024-08-09 16:38] LABS: CORONAVIRUS COVID-19 AG NEGATIVE (NEGATIVE); INFLUENZA A AG NEGATIVE (NEGATIVE); INFLUENZA B AG NEGATIVE (NEGATIVE)
[2024-08-09] MEDS: BUDESONIDE/FORMOTEROL 160/4.5MCG INHALER INH SCH (19:23)
[2024-08-09] MEDS: TAMSULOSIN HCL 0.4 MG CAP PO SCH (20:10)
[2024-08-09] MEDS: HEPARIN SOD (PORCINE) 5,000 UNIT/ML VIAL SC SCH (20:17)
[2024-08-10] VITALS (14 sets, daily range): BP systolic 147–162; BP diastolic 64–80; PULSE 60–82; RESP 16–20; TEMP 97.7–98.9; O2SAT 94–100
[2024-08-10] MEDS: LEVOTHYROXINE SODIUM 50 MCG TAB PO SCH (05:23)
[2024-08-10 06:09] LABS: BASOPHILS % 0.4 % (0.0-1.0); EOSINOPHILS # (AUTO) 0.1 (0.0-0.4); EOSINOPHILS % 1.1 % (0.0-6.0); HEMATOCRIT 33.2 % (38.2-49.6); HEMOGLOBIN 11.2 g/dL (14.0-18.0); LYMPHOCYTES # (AUTO) 0.6 (1.0-3.2); LYMPHOCYTES % 11.7 % (18.0-39.1); MEAN CORPUSCULAR HEMOGLOBIN 30.5 pg (28-32); MEAN CORPUSCULAR HGB CONC 33.7 g/dL (31-35); MEAN CORPUSCULAR VOLUME 90.5 fL (81-99); MONOCYTES # (AUTO) 0.5 (0.2-0.8); MONOCYTES % 9.3 % (4.4-11.3); NEUTROPHILS # (AUTO) 4.2 (2.1-6.9); NEUTROPHILS % 76.8 % (38.7-80.0); PLATELET COUNT 192 x10e3/uL (140-360); RED BLOOD COUNT 3.67 x10e6/uL (4.3-5.7); RED CELL DISTRIBUTION WIDTH 14.5 % (11.7-14.4); WHITE BLOOD COUNT 5.47 x10e3/uL (4.8-10.8)
[2024-08-10 06:38] LABS: ANION GAP 18.7 mmol/L (8-16); BILIRUBIN,TOTAL 0.8 mg/dL (0.2-1.2); CALCIUM 9.3 mg/dL (8.4-10.2); CREATININE, SERUM 2.57 mg/dL (0.72-1.25); TOTAL PROTEIN 6.1 g/dL (6.5-8.1)
[2024-08-10 06:40] LABS: POTASSIUM 2.7 mmol/L (3.5-5.1)
[2024-08-10] MEDS: NON-FORMULARY MEDICATION (Lovastatin (Altoprev) 20 MG) PO SCH (09:00)
[2024-08-10] MEDS: BUMETANIDE 1 MG TAB PO SCH (09:07)
[2024-08-10] MEDS: POTASSIUM CHLORIDE 10MEQ EA PO ONE ×2 (09:08→12:28)
[2024-08-10] MEDS ORDERED: POTASSIUM CHLORIDE 10MEQ EA PO ONE (11:30)
[2024-08-10] MEDS: METOPROLOL TARTRATE 25 MG TAB PO SCH (16:26)
[2024-08-11] VITALS (13 sets, daily range): BP systolic 130–182; BP diastolic 56–76; PULSE 62–76; RESP 16–20; TEMP 97.5–98.1; O2SAT 67–96
[2024-08-11 05:22] LABS: BASOPHILS % 0.5 % (0.0-1.0); EOSINOPHILS # (AUTO) 0.2 (0.0-0.4); EOSINOPHILS % 3.9 % (0.0-6.0); HEMATOCRIT 36.2 % (38.2-49.6); HEMOGLOBIN 11.4 g/dL (14.0-18.0); LYMPHOCYTES # (AUTO) 0.6 (1.0-3.2); LYMPHOCYTES % 14.5 % (18.0-39.1); MEAN CORPUSCULAR HEMOGLOBIN 30.5 pg (28-32); MEAN CORPUSCULAR HGB CONC 31.5 g/dL (31-35); MONOCYTES # (AUTO) 0.4 (0.2-0.8); MONOCYTES % 9.4 % (4.4-11.3); NEUTROPHILS # (AUTO) 3.1 (2.1-6.9); NEUTROPHILS % 71.2 % (38.7-80.0); PLATELET COUNT 203 x10e3/uL (140-360); RED BLOOD COUNT 3.74 x10e6/uL (4.3-5.7); RED CELL DISTRIBUTION WIDTH 14.2 % (11.7-14.4); WHITE BLOOD COUNT 4.34 x10e3/uL (4.8-10.8)
[2024-08-11 05:39] LABS: MEAN CORPUSCULAR VOLUME 96.8 fL (81-99)
[2024-08-11 05:42] LABS: ANION GAP 16.3 mmol/L (8-16); CALCIUM 8.6 mg/dL (8.4-10.2); CREATININE, SERUM 2.58 mg/dL (0.72-1.25); MAGNESIUM 2.1 MG/DL (1.3-2.1); PHOSPHORUS 4.3 MG/DL (2.3-4.7)
[2024-08-11 05:45] LABS: POTASSIUM 3.3 mmol/L (3.5-5.1)
[2024-08-11] MEDS: METOPROLOL TARTRATE 50 MG TAB PO STA (12:37)
[2024-08-11] MEDS ORDERED: ENOXAPARIN 30 MG/0.3 ML SYR SC SCH (17:00)
[2024-08-11] MEDS: METOPROLOL TARTRATE 50 MG TAB PO SCH (20:56)
[2024-08-11] MEDS: HEPARIN SOD (PORCINE) 5,000 UNIT/ML VIAL SC SCH (21:02)
[2024-08-12 01:26] VITALS: PULSE 69; RESP 18; O2SAT 96
[2024-08-12 04:30] VITALS: BP 160/74; RESP 18; TEMP 98.2; O2SAT 98
[2024-08-12 08:00] VITALS: BP 157/66; PULSE 68; RESP 20; TEMP 98.1; O2SAT 96
[2024-08-12] MEDS ORDERED: METOPROLOL TART50 MG PO (08:03)
[2024-08-12] MEDS ORDERED: HYDRALAZINE HC100 MG PO (08:03)
[2024-08-12] MEDS ORDERED: NIFEDIPINE ER60 M1 PO (08:03)
[2024-08-12] MEDS: NIFEDIPINE CR 30 MG TAB PO SCH (08:25)
[2024-08-12 08:30] VITALS: BP 157/66; PULSE 68; RESP 18; TEMP 98.1; O2SAT 98
[2024-08-12 08:32] LABS: BASOPHILS % 0.6 % (0.0-1.0); EOSINOPHILS # (AUTO) 0.2 (0.0-0.4); EOSINOPHILS % 4.6 % (0.0-6.0); HEMATOCRIT 36.6 % (38.2-49.6); HEMOGLOBIN 12.1 g/dL (14.0-18.0); LYMPHOCYTES # (AUTO) 0.6 (1.0-3.2); LYMPHOCYTES % 12.1 % (18.0-39.1); MEAN CORPUSCULAR HEMOGLOBIN 30.2 pg (28-32); MEAN CORPUSCULAR HGB CONC 33.1 g/dL (31-35); MEAN CORPUSCULAR VOLUME 91.3 fL (81-99); MONOCYTES # (AUTO) 0.4 (0.2-0.8); MONOCYTES % 8.7 % (4.4-11.3); NEUTROPHILS # (AUTO) 3.7 (2.1-6.9); NEUTROPHILS % 73.6 % (38.7-80.0); PLATELET COUNT 214 x10e3/uL (140-360); RED BLOOD COUNT 4.01 x10e6/uL (4.3-5.7); RED CELL DISTRIBUTION WIDTH 14.3 % (11.7-14.4); WHITE BLOOD COUNT 4.96 x10e3/uL (4.8-10.8)
[2024-08-12 08:56] LABS: ANION GAP 18.8 mmol/L (8-16); CALCIUM 9.4 mg/dL (8.4-10.2); CREATININE, SERUM 2.49 mg/dL (0.72-1.25); MAGNESIUM 2.1 MG/DL (1.3-2.1); PHOSPHORUS 3.8 MG/DL (2.3-4.7); POTASSIUM 3.8 mmol/L (3.5-5.1)
[2024-08-12 09:05] VITALS: PULSE 68; RESP 16; O2SAT 96
== END 2024-08-12 09:50 | disposition home or self-care (01) | DRG 304 ==
LOC: ER 06:56 → ERHOLD 08:15 → MED/SURG 09:20 → OBSVTOIN 08-10 11:03
PROVIDERS: ADMIT Internal Medicine; ATTEND Internal Medicine
DX: I16.1 Hypertensive emergency (principal); J81.0 Acute pulmonary edema; J90 Pleural effusion, not elsewhere classified; J44.1 Chronic obstructive pulmonary disease with (acute) exacerbation; I12.9 Hypertensive chronic kidney disease with stage 1 through stage 4 chronic kidney disease, or unspecified chronic kidney disease; N18.4 Chronic kidney disease, stage 4 (severe); J96.11 Chronic respiratory failure with hypoxia; Z99.81 Dependence on supplemental oxygen; E78.00 Pure hypercholesterolemia, unspecified; N40.0 Benign prostatic hyperplasia without lower urinary tract symptoms; E03.9 Hypothyroidism, unspecified; E87.70 Fluid overload, unspecified; F03.90 Unspecified dementia, unspecified severity, without behavioral disturbance, psychotic disturbance, mood disturbance, and anxiety; Z11.52 Encounter for screening for COVID-19; Z79.890 Hormone replacement therapy; Z79.51 Long term (current) use of inhaled steroids
CPT/HCPCS: 36415; 71046; 76604; 80048; 80053; 83605; 83735; 83880; 84100; 84484; 85025; 85379; 93005; 94640; 94664; 94799; 99284; G0378; J0360; J1644; J1650; J1940

== ENCOUNTER → 2024-09-24 | Outpatient (REF) | payer MEDICARE ==
[~2024-09-24] MED LIST changes: +ALBUTEROL2.5 MG/3 M INH; +BREYNA 160-4.10.3 GM INH; +BUMETANIDE1 MG PO; +BUSPIRONE HCL5 MG PO; +LOKELMA10 GM PO; +METOPROLOL TART25 MG PO; +METOPROLOL TART50 MG PO; +NIFEDIPINE ER60 M1 PO; +STIOLTO RESPIMAT4 G2 INH
== END ==
LOC: US 15:11
PROVIDERS: ATTEND Internal Medicine
DX: R06.02 Shortness of breath (principal); J90 Pleural effusion, not elsewhere classified; J98.11 Atelectasis
CPT/HCPCS: 71046; 76604

== ENCOUNTER → 2025-05-13 | Outpatient (REF) | payer MEDICARE | LOC: RAD 10:47 | PROVIDERS: ATTEND Internal Medicine | DX: R06.02 Shortness of breath (principal) | CPT/HCPCS: 71046 ==